=== PATIENT | female | born 1960 | race Caucasian/White ===

== ENCOUNTER 2017-08-20 11:32 | Day surgery (SDC) | payer OTHER ==
[~2017-08-20] VITALS: Ht 167.6 cm; Wt 66.3 kg
[~2017-08-20 11:32] MED LIST: ALPR.25 PO; Amitriptyline H50 MG PO; BENADRYL25 MG PO; CYCL10 PO; ERGO400; FLONASE ALLERG9.9 ML; GABA100 PO; HYOS.125; L-Lysine500 M1; MELA3; NICO21TP; OMEPRAZOLE MAGN20 MG PO; PROAIR RESPICL90 MCG INH; Percocet 5-3251 EACH PO; St. John's Wor300 M1; TOPICAINE 5113 GM TOP; VALACYCLOVIR500 MG; VITAMIN B12-FO1 EACH PO
== END 2017-08-20 14:10 | disposition home or self-care (01) ==
LOC: ORSCSDS 11:32
PROVIDERS: Ophthalmology
PROC: 08RJ3JZ Replacement of Right Lens with Synthetic Substitute, Percutaneous Approach (ICD-10-PCS; principal; 2017-08-20 13:00)
DX: H25.11 Age-related nuclear cataract, right eye (principal); Z79.899 Other long term (current) drug therapy
CPT/HCPCS: J2250; J3010; J7040; V2632

== ENCOUNTER 2017-09-23 09:15 | Day surgery (SDC) | payer OTHER ==
[~2017-09-23] VITALS: Ht 167.6 cm; Wt 71.2 kg
== END 2017-09-23 22:56 | disposition home or self-care (01) ==
LOC: ORSCMMR 09:15
DX: K21.9 Gastro-esophageal reflux disease without esophagitis (principal); R10.13 Epigastric pain; K22.2 Esophageal obstruction; Z12.11 Encounter for screening for malignant neoplasm of colon; Z86.010 Personal history of colon polyps; D12.2 Benign neoplasm of ascending colon; K63.5 Polyp of colon; J44.9 Chronic obstructive pulmonary disease, unspecified; Z79.899 Other long term (current) drug therapy; Z87.891 Personal history of nicotine dependence
CPT/HCPCS: 88305; 88342; J7120

== ENCOUNTER → 2020-02-20 | Outpatient (CLI) | payer OTHER ==
[2020-02-22 13:39] LABS: Stool Occult Bld Immuno 1 Negative (NEGATIVE)
== END ==
LOC: LAB SHORT 11:00 → LAB 11:00 → LAB FUT 02-20 13:20
PROVIDERS: Family Medicine
DX: Z12.11 Encounter for screening for malignant neoplasm of colon (principal)
CPT/HCPCS: G0328

== ENCOUNTER 2022-08-31 09:44 | Emergency (ER) | payer OTHER ==
[~2022-08-31] VITALS: Ht 167.6 cm; Wt 72.6 kg
[2022-08-31 10:57] LABS: Influenza A, PCR NEGATIVE (NEGATIVE); Influenza B, PCR NEGATIVE (NEGATIVE); Resp Syncytial Virus, PCR NEGATIVE (NEGATIVE); SARS-Cov-2 (COVID-19) PCR, MMC NEGATIVE (NEGATIVE)
[2022-08-31] MEDS ORDERED: PRED20 PO (14:43)
== END 2022-08-31 14:58 | disposition home or self-care (01) ==
LOC: ER 09:44
PROVIDERS: Emergency Medicine
DX: J98.8 Other specified respiratory disorders (principal); J98.01 Acute bronchospasm; Z87.891 Personal history of nicotine dependence; Z20.822 Contact with and (suspected) exposure to COVID-19
CPT/HCPCS: 0241U; 71046; A9270; J7512

== ENCOUNTER 2023-01-12 08:32 | Day surgery (SDC) | payer OTHER ==
[2023-01-12] VITALS (15 sets, daily range): BP systolic 98–144; BP diastolic 59–99
[~2023-01-12] VITALS: Ht 167.6 cm; Wt 73.4 kg
[~2023-01-12 08:32] MED LIST changes: -ERGO400; +ERGO400 PO; -HYOS.125; +HYOS.125 SL; +METF500 PO; +PRED20 PO; +ROSU10TA PO; +VALTREX PO
[2023-01-12] MEDS ORDERED: METO25ER PO (09:09)
[2023-01-12] MEDS ORDERED: Percocet 5-3251 EACH PO (14:50)
[2023-01-12] MEDS ORDERED: ACET500 PO (14:50)
--- NOTE | 2023-01-12 15:51 | NUR ---
UPON ARRIVAL TO UNIT, PT NUMB FROM HIPS DOWN TO TOES. UNABLE TO WIGGLE TOES OR MOVE LOWER EXTREMITIES. NO STATES FEELING DOWN TO KNEES, ABLE TO RAISE R FOOT.
--- NOTE | 2023-01-12 19:28 | NUR ---
SHIFT SUMMARY PATIENT IS POST-OP DAY 1 OF A LEFT TOTAL KNEE WITH SPINAL BLOCK. PATIENT ATE JELLO AND CRACKERS, PATIENT TOLERATED WELL. PATIENT DENIED N/V. PATIENT IS ABLE TO AMBULATE TO BATHROOM WITH A WALKER AND ONE PERSON ASSIST. PATIENT HAD FAMILY VISIT THROUGHTOUT THE DAY. PATIENT REQUESTED AN ICEPACK FOR A HEADACHE. MODERATE PAIN LEVEL. RN MEDICATED PATIENT PER EMAR. PATIENT HAS AN AQUACEL DESSING ON LEFT KNEE THAT IS CLEAN DRY AND INTACT. PATIENT CURRENTLY SITTING IN CHAIR TALKING ON THE PHONE. CALL LIGHT WITHIN REACH.
--- NOTE | 2023-01-12 19:43 | NUR ---
REVIEWED SN DOCUMENTATION
[2023-01-13 03:28] VITALS: BP 143/79
[2023-01-13 04:55] LABS: BASOPHILS ABSOLUTE AUTO 0.01 K/mm3 (0.00-0.23); BASOPHILS PERCENT AUTO 0 % (0-2); EOSINOPHILS PERCENT AUTO 0 % (0-6); Hematocrit 36.9 % (33.0-51.0); IMMATURE GRAN ABSOLUTE AUTO 0.06 K/mm3 (0.00-0.10); IMMATURE GRAN PERCENT AUTO 0 % (0-1); LYMPHOCYTES ABSOLUTE AUTO 1.75 K/mm3 (0.84-5.20); LYMPHOCYTES PERCENT AUTO 11 % (21-46); MONOCYTES ABSOLUTE AUTO 0.67 K/mm3 (0.16-1.47); MONOCYTES PERCENT AUTO 4 % (4-13); Mean Corpuscular HGB 31.2 pg (26.0-34.0); Mean Corpuscular HGB Conc 32.5 g/dL (31.5-36.5); Mean Corpuscular Volume 96 fL (80-100); Mean Platelet Volume 10.9 fL (9.1-12.4); NEUTROPHILS ABSOLUTE AUTO 12.89 K/mm3 (1.96-9.15); NEUTROPHILS PERCENT AUTO 84 % (41-73); Platelet Count 237 K/mm3 (150-400); RDW Coefficient Variation 12.5 % (11.7-14.2); RDW Standard Deviation 43.7 fL (35.1-46.3); Red Blood Cell Count 3.85 M/mm3 (3.80-5.20); White Blood Cell Count 15.38 K/mm3 (4.00-11.30)
[2023-01-13 05:25] LABS: Bun/Creatinine Ratio 19.2 (12.0-20.0); Calcium, Blood 8.5 mg/dL (8.5-10.1); Creatinine, Blood 0.73 mg/dL (0.40-1.00); Magnesium, Blood 1.8 mg/dL (1.6-2.4); Potassium, Blood 4.3 mmol/L (3.5-5.5)
--- NOTE | 2023-01-13 05:51 | NUR ---
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
[2023-01-13 07:42] VITALS: BP 124/69
[2023-01-13] MEDS ORDERED: ASPI81CH PO (08:31)
[2023-01-13] MEDS ORDERED: SULTRIDS PO (08:33)
[2023-01-13] MEDS ORDERED: OXYC5 PO (08:34)
--- NOTE | 2023-01-13 11:23 | NUR ---
DISCHARGE SUMMARY ALERT, ORIENTED, CLEARED FOR DISCHARGE BY PT. AMBULATING IN ROOM WITH FWW. LEFT KNEE WITH AQUACEL C/D/I. PAIN CONTROLLED WITH PAIN MEDS PER EMAR. TOLERATING ADA DIET AND ORAL LIQUIDS. VOIDING WELL. DISCHARGE EDUCATION GIVEN ON ACTIVITY, THERAPY, WOUND CARE, AND FOLLOW UP APPTS WITH ORTHO AND PT. [facility] IV DC'D WNL. PATIENT LEFT UNIT AT 1110 VIA WHEELCHAIR WITH FRIEND FOR HOME.
== END 2023-01-13 11:25 | disposition home or self-care (01) ==
LOC: ORSCMMR 08:32 → ORD 10:45 → SURS 14:30 → ORSCMMR 01-13 11:25
PROVIDERS: Orthopaedic Surgery
PROC: 8E0Y0CZ Robotic Assisted Procedure of Lower Extremity, Open Approach (ICD-10-PCS; principal; 2023-01-12 10:45)
PROC: 0SRD0J9 Replacement of Left Knee Joint with Synthetic Substitute, Cemented, Open Approach (ICD-10-PCS; principal; 2023-01-12 10:45)
DX: M17.0 Bilateral primary osteoarthritis of knee (principal); E11.9 Type 2 diabetes mellitus without complications; E78.5 Hyperlipidemia, unspecified; I10 Essential (primary) hypertension; Z79.84 Long term (current) use of oral hypoglycemic drugs; Z79.899 Other long term (current) drug therapy; Z87.891 Personal history of nicotine dependence; Z86.16 Personal history of COVID-19; Z96.641 Presence of right artificial hip joint
CPT/HCPCS: 27447; 20985; S2900; 36415; 73560-LT; 80048; 82947; 83735; 85025; 97110; 97116; 97162; A9270; C1713; C1776; J0171; J0690; J0735; J1100; J1885; J2250; J2370; J2405; J2704; J2795; J3010; J7120

== ENCOUNTER → 2023-03-06 | Outpatient (CLI) | payer OTHER ==
[~2023-03-06] MED LIST changes: +ACET500 PO; +ASPI81CH PO; +METO25ER PO; +OXYC5 PO; +SULTRIDS PO
[2023-03-15 06:08] LABS: HPV APTIMA Negative (Negative)
== END ==
LOC: LAB SHORT 17:04 → LAB 17:04
PROVIDERS: Nurse Practitioner Family
DX: Z01.419 Encounter for gynecological examination (general) (routine) without abnormal findings (principal)
CPT/HCPCS: 87624; 88175

== ENCOUNTER 2023-09-30 09:09 | Day surgery (SDC) | payer OTHER ==
[~2023-09-30] VITALS: Ht 162.6 cm; Wt 70.5 kg
[~2023-09-30 09:09] MED LIST changes: +LISI20 PO; +MONT10T PO
[2023-09-30 09:24] VITALS: BP 156/81
--- NOTE | 2023-09-30 09:33 | NUR ---
History, Chart, Medications and Allergies reviewed before start of procedure. Patient up to Ambulate independently. Gait steady. Pre-Op teaching done. Pt verbalizes understanding. Patient confirms NPO status and agrees with scheduled surgery. Patient states colon prep results clear. Patient States Post-Procedure ride home has been arranged.
--- NOTE | 2023-09-30 09:50 | NUR ---
09/30/23 0950 Elver Bobby HISTORY, CHART, MEDICATIONS AND ALLERGIES REVIEWED BEFORE START OF PROCEDURE. PATIENT CONFIRMS NPO STATUS AND AGREES WITH SCHEDULED PROCEDURE. 3-LEAD EKG REVIEWED WITH PHYSICIAN PRIOR TO START OF PROCEDURE. MONITOR INTACT WITH CONTINUOUS PULSE OXIMETRY,CAPNOGRAPHY, 3-LEAD EKG, INTERMITTENT BP. SUPPLEMENTAL O2 TO BE TITRATED THROUGHOUT PROCEDURE TO MAINTAIN O2 SATURATION ABOVE 90%. PATIENT DETERMINED TO BE ASA APPROPRIATE FOR PROPOFOL SEDATION PRIOR TO START OF PROCEDURE BY
[2023-09-30 10:12] VITALS: BP 106/75
--- NOTE | 2023-09-30 10:12 | NUR ---
PT TO DAY SURGERY STEP DOWN FROM COLONOSCOPY. PT IS AWAKE, ALERT AND ORIENTED; ABLE TO MOVE SELF IN BED. VSS. NO COMPLAINTS. PT HAS RIDE SET UP. PO FLUIDS GIVEN.
[2023-09-30 10:25] VITALS: BP 120/79
--- NOTE | 2023-09-30 10:25 | NUR ---
TOLERATING PO FLUIDS AND CRACKERS WELL. Discharge instructions reviewed with patient. Patient verbalizes understanding. Copy given to patient to take home.
[2023-09-30 10:42] VITALS: BP 133/88
--- NOTE | 2023-09-30 10:52 | NUR ---
Patient up to Ambulate independently. Gait steady.
--- NOTE | 2023-09-30 11:06 | NUR ---
Discharged via wheelchair to private car for ride home.
== END 2023-09-30 11:12 | disposition home or self-care (01) ==
LOC: ORSCMMR 09:09 → ORD 10:00 → ORSCMMR 10:00
PROVIDERS: Internal Medicine Gastroenterology
PROC: 0DBN8ZX Excision of Sigmoid Colon, Via Natural or Artificial Opening Endoscopic, Diagnostic (ICD-10-PCS; principal; 2023-09-30 10:00)
DX: Z12.11 Encounter for screening for malignant neoplasm of colon (principal); Z86.010 Personal history of colon polyps; K63.5 Polyp of colon; K59.09 Other constipation; K57.30 Diverticulosis of large intestine without perforation or abscess without bleeding; I10 Essential (primary) hypertension; E11.9 Type 2 diabetes mellitus without complications; K21.9 Gastro-esophageal reflux disease without esophagitis; E78.00 Pure hypercholesterolemia, unspecified; F41.9 Anxiety disorder, unspecified; F17.210 Nicotine dependence, cigarettes, uncomplicated; Z79.84 Long term (current) use of oral hypoglycemic drugs; Z79.899 Other long term (current) drug therapy
CPT/HCPCS: 82947; 88305; J2704; J7120

== ENCOUNTER 2024-10-26 12:35 | Day surgery (SDC) | payer OTHER ==
[~2024-10-26] VITALS: Ht 165.1 cm; Wt 67.9 kg
[~2024-10-26 12:35] MED LIST changes: +ASCO500 PO; +Balanced Salt Epinephrine Irrigation Solution 500 mL IR SCH; +CALCIUM 500 MG1 EAC2 PO; +Diazepam 10 MG Tab PO SCH; +Diazepam 2 MG Tab PO PRN; +Diazepam 5 MG Tab PO PRN; +KAPSPARGO SPRIN25 MG PO; +LIDO700A20 TOP; +Lidocaine HCl/Pf 1% 5 ML VIAL XX SCH; +MOBIC15 MG PO; +Moxifloxacin HCL 0.5 MG/0.1 ML 0.4MLSYR LEFTEYE SCH; +Ondansetron 4 MG SoluTab MM PRN; +PHENYLEPHRINE\\TROPICAMIDE\\TETRACAINE OPHTHALMIC DILATING SOLN LEFTEYE PRN; +Povidone-Iodine 450 DROP/30 ML Solution LEFTEYE SCH; +Povidone-Iodine 450 DROP/30 ML Solution ONE; +Tetracaine HCl/Pf 0.5% Opth Soln 4 ml ONE; +Triamcinolone Inj Susp 40 MG / ML 1ML Vial INJ SCH; +Triamcinolone Inj Susp 40 MG / ML 1ML Vial ONE; +Vitamin B-12100 MCG PO; +WEGOVY0.25 MG/0. SQ
[2024-10-26] MEDS ORDERED: Diazepam 10 MG Tab ONE (12:41)
[2024-10-26] MEDS ORDERED: FentaNYL Citrate 50 MCG/ML 2 ML Injection ONE (13:12)
[2024-10-26] MEDS ORDERED: [UNRECOGNIZED DRUG - OTHER] (13:14)
[2024-10-26] MEDS ORDERED: MONT5TCH (13:17)
--- NOTE | 2024-10-26 13:22 | NUR ---
10/26/24 1322 Hiwot Jimenez 1304: ANXIETY 05/17 1306: PO VALIUM 10 MG GIVEN PER ORDERS
[2024-10-26] MEDS ORDERED: Midazolam HCl 1MG / ML 2ML Vial ONE (13:37)
[2024-10-26] MEDS ORDERED: Ondansetron HCl 2 MG / ML 2ML Vial ONE (13:41)
[2024-10-26] MEDS ORDERED: Flumazenil 0.1 MG / ML 5ML Vial ONE (13:44)
[2024-10-26 14:18] VITALS: BP 118/78
== END 2024-10-26 14:17 | disposition home or self-care (01) ==
LOC: ORSCSDS 12:35
PROVIDERS: Ophthalmology
PROC: 08RK3JZ Replacement of Left Lens with Synthetic Substitute, Percutaneous Approach (ICD-10-PCS; principal; 2024-10-26 13:30)
DX: E11.36 Type 2 diabetes mellitus with diabetic cataract (principal); H25.812 Combined forms of age-related cataract, left eye; F32.A Depression, unspecified; F41.9 Anxiety disorder, unspecified; J45.909 Unspecified asthma, uncomplicated; E78.5 Hyperlipidemia, unspecified; Z79.84 Long term (current) use of oral hypoglycemic drugs; Z79.899 Other long term (current) drug therapy
CPT/HCPCS: 82947; A9270; J2250; J2405; J3010; J3301; V2632